=== PATIENT | female | born 1990 | race Caucasian/White ===

== ENCOUNTER → 2020-04-27 10:34 | Outpatient (CLI) | payer OTHER, MEDICAID, SELFPAY ==
--- NOTE | 2020-04-27 11:29 | DI.CT.S_ITS ---
PROCEDURE: CT ABDOMEN PELVIS W CON INDICATIONS: Right lower quadrant pain TECHNIQUE: After the administration of oral and intravenous contrast, 5 mm thick sections acquired from the diaphragms to the symphysis. 5 mm thick coronal and sagittal reformats were performed. For radiation dose reduction, the following was used: automated exposure control, adjustment of mA and/or kV according to patient size. COMPARISON: None. FINDINGS: Image quality: Excellent. ABDOMEN: Lung bases: Lung bases are clear. Heart size is normal. Solid organs: Liver is normal in size and enhancement. Mild hepatic steatosis is seen. No discrete hepatic lesion. Gallbladder is within normal limits. Biliary system is non-dilated. Pancreas enhances normally. Spleen is normal in size and enhancement. No adrenal nodules. Kidneys are normal in size and enhancement, without hydronephrosis. Peritoneum and bowel: Stomach, small bowel, and colon loops are normal in caliber and wall thickness. No free fluid or air. Appendix is visualized and is within normal limits. Nodes and vessels: No retroperitoneal or mesenteric adenopathy. Aorta and inferior vena cava are normal in caliber. Miscellaneous: No ventral hernias. PELVIS: Genitourinary: Bladder wall thickness is normal. Intrauterine device is seen. 3.8 x 3 cm cyst is seen in right adnexa and likely represent a large right ovarian cyst. Small left ovarian cyst measures 9 mm in size is also seen. Miscellaneous: No inguinal hernias or adenopathy. Bones: No suspicious bony lesions. No vertebral body compression fractures. IMPRESSION: 1. Normal appendix. No bowel obstruction or abnormal bowel wall thickening. No free fluid or free air. 2. IUD in place. Normal appearing left ovary with subcentimeter follicle. Suggestion of a 3.8 x 3 cm right ovarian cyst. Pelvic ultrasound can be done for further evaluation if indicated. 3. Mild hepatic steatosis. Dictated by: Jaspal Pena M.D. on 04/27/2020 at 12:39 Approved by: Jaspal Pena M.D. on 04/27/2020 at 12:49
== END ==
PROVIDERS: Referring Provider Physician Assistant; Visit Provider Physician Assistant
DX: R10.31 Right lower quadrant pain (principal); K76.0 Fatty (change of) liver, not elsewhere classified; Z97.5 Presence of (intrauterine) contraceptive device
CPT/HCPCS: 74177; Q9967

== ENCOUNTER → 2020-05-19 12:01 | Outpatient (CLI) | payer OTHER, MEDICAID, SELFPAY ==
--- NOTE | 2020-05-19 12:02 | DI.US.S_ITS ---
PROCEDURE: US PELVIC COMPLETE INDICATIONS: Right pelvic pain TECHNIQUE: Real-time scanning was performed of the pelvic organs, with image documentation. Additional endovaginal scanning was necessary due to incomplete visualization of the adnexal and endometrial structures by transabdominal scanning. COMPARISON: [facility], CT, CT ABDOMEN PELVIS W CON, 04/27/2020, 11:39. FINDINGS: Uterus: Uterus is normal in size at 8.0 x 3.2 x 4.7 cm. Intrauterine device is present in expected position and the endometrial complex is not well seen. Ovaries: Right ovary measures 2.9 x 2.0 x 2.0 cm and the left 2.1 x 3.3 x 2.0 cm. Previously visualized right ovarian cyst is no longer evident. Simple dominant cyst seen on the left ovary measuring up to 3.1 cm. Other: No pathologic free abdominal or pelvic fluid. IMPRESSION: Previously visualized right ovarian cyst has resolved and there is a new left ovarian cyst measuring up to 3.1 cm. Dictated by: Roger Lucas [facility] Interpreted: Darek Osuna MD on 05/19/2020 at 17:18 Approved by: Darek Osuna M.D. on 05/19/2020 at 17:31
== END ==
PROVIDERS: PCP Physician Assistant; Referring Provider Physician Assistant; Visit Provider Physician Assistant
DX: R10.2 Pelvic and perineal pain (principal); N83.292 Other ovarian cyst, left side; Z97.5 Presence of (intrauterine) contraceptive device
CPT/HCPCS: 76856

== ENCOUNTER → 2020-12-11 11:32 | Outpatient (CLI) | payer OTHER, MEDICAID, SELFPAY ==
[2020-12-11 20:11] LABS: Urine N gonorrhoeae NOT DETECTED
[2020-12-11 20:14] LABS: Urine Chlamydia NOT DETECTED
[2020-12-13 11:08] LABS: HSV 2 IGG AB < 0.91 index (0.00-0.90); HSV1IGG < 0.91 index (0.00-0.90)
== END ==
PROVIDERS: PCP Physician Assistant; Visit Provider Physician Assistant Medical
DX: Z20.2 Contact with and (suspected) exposure to infections with a predominantly sexual mode of transmission (principal)
CPT/HCPCS: 86695; 86696; 87491; 87591

== ENCOUNTER → 2021-05-13 14:19 | Outpatient (CLI) | payer OTHER, MEDICAID, SELFPAY ==
[2021-05-15 05:29] LABS: Candida species Negative (Negative); Gardnerella vaginalis Positive (Negative); Trichomoas vaginalis Negative (Negative)
== END ==
PROVIDERS: PCP Physician Assistant; Visit Provider Physician Assistant
DX: N89.8 Other specified noninflammatory disorders of vagina (principal); Z11.3 Encounter for screening for infections with a predominantly sexual mode of transmission
CPT/HCPCS: 87480; 87510; 87660

== ENCOUNTER → 2021-06-24 11:26 | Outpatient (CLI) | payer OTHER, MEDICAID, SELFPAY ==
[2021-06-24 18:59] LABS: Alanine Aminotransferase 63 IU/L (<35); Albumin 4.6 g/dL (3.5-5.0); Albumin Globulin Ratio 1.5 (1.0-2.8); Alkaline Phosphatase 87 U/L (38-126); Aspartate Aminotransferase 41 IU/L (14-36); BUN Creatinine Ratio 21.7 (6-22); Bilirubin Total 0.6 mg/dL (0.2-1.3); Blood Urea Nitrogen 18 mg/dL (7-17); Calcium 9.4 mg/dL (8.4-10.2); Carbon Dioxide 29 mmol/L (22-32); Chloride 102 mmol/L (98-107); Estimated Glomerular Filt Rate > 60 mL/min (>60); Globulin 3.1 g/dL (1.7-4.1); Glucose 88 mg/dL (70-100); HEMOLYSIS < 15 (0-50); Potassium 3.9 mmol/L (3.4-5.1); Sodium 140 mmol/L (137-145); Total Protein 7.7 g/dL (6.3-8.2)
[2021-06-24 19:27] LABS: Hemoglobin A1C% w Est Avg Glu 5.2 % (4.0-6.0)
[2021-06-24 19:40] LABS: HIV 1 & 2 Ab/Ag 4th Gen Combo NEGATIVE (NEGATIVE)
[2021-06-24 20:10] LABS: Urine N gonorrhoeae NOT DETECTED
[2021-06-24 20:26] LABS: Urine Chlamydia NOT DETECTED
[2021-06-26 03:12] LABS: Candida species Positive (Negative); Gardnerella vaginalis Negative (Negative); Trichomoas vaginalis Negative (Negative)
[2021-06-26 06:54] LABS: RPR Screen Non Reactive (Non Reactive)
== END ==
PROVIDERS: PCP Physician Assistant; Visit Provider Physician Assistant
DX: B37.9 Candidiasis, unspecified (principal); R03.0 Elevated blood-pressure reading, without diagnosis of hypertension; B37.2 Candidiasis of skin and nail; Z11.3 Encounter for screening for infections with a predominantly sexual mode of transmission; Z20.2 Contact with and (suspected) exposure to infections with a predominantly sexual mode of transmission; N89.8 Other specified noninflammatory disorders of vagina
CPT/HCPCS: 80053; 83036; 86592; 87389; 87480; 87491; 87510; 87591; 87660

== ENCOUNTER → 2021-09-09 12:03 | Outpatient (CLI) | payer OTHER, MEDICAID, SELFPAY ==
--- NOTE | 2021-09-09 12:04 | DI.RAD.S_ITS ---
PROCEDURE: XR FOOT RT MIN 3V INDICATIONS: distal 1st metatarsal pain, blunt trauma TECHNIQUE: <3> views of the foot were acquired. COMPARISON: None. FINDINGS: Bones: No fractures or dislocations. No suspicious bony lesions. Soft tissues: No tibiotalar joint effusion. Achilles tendon appears normal. IMPRESSION: No acute radiographic abnormality Dictated by: Nazario Palma M.D. on 09/09/2021 at 12:33 Approved by: Nazario Palma M.D. on 09/09/2021 at 12:35
--- NOTE | 2021-09-09 12:04 | DI.RAD.S_ITS ---
PROCEDURE: XR FOREARM LT 2V INDICATIONS: blunt trauma TECHNIQUE: 2 views of the forearm were acquired. COMPARISON: None. FINDINGS: Bones: No fractures or dislocations. No suspicious bony lesions. Soft tissues: No suspicious soft tissue calcifications or masses. IMPRESSION: No acute radiographic abnormality Dictated by: Nazario Palma M.D. on 09/09/2021 at 12:35 Approved by: Nazario Palma M.D. on 09/09/2021 at 12:37
== END ==
PROVIDERS: PCP Physician Assistant; Referring Provider Student in an Organized Health Care Education/Training Program; Visit Provider Student in an Organized Health Care Education/Training Program
DX: M79.671 Pain in right foot (principal); M79.632 Pain in left forearm
CPT/HCPCS: 73090; 73630

== ENCOUNTER → 2022-05-16 13:05 | Outpatient (CLI) | payer OTHER, MEDICAID, SELFPAY ==
[2022-05-16 20:59] LABS: Alanine Aminotransferase 32 IU/L (<35); Albumin 4.4 g/dL (3.5-5.0); Albumin Globulin Ratio 1.5 (1.0-2.8); Alkaline Phosphatase 89 U/L (38-126); Aspartate Aminotransferase 27 IU/L (14-36); BUN Creatinine Ratio 18.1 (6-22); Bilirubin Total 0.4 mg/dL (0.2-1.3); Blood Urea Nitrogen 13 mg/dL (7-17); Calcium 9.4 mg/dL (8.4-10.2); Carbon Dioxide 29 mmol/L (22-32); Chloride 101 mmol/L (98-107); Estimated Glomerular Filt Rate > 60 mL/min (>60); Glucose 95 mg/dL (70-100); HEMOLYSIS < 15 (0-50); Potassium 3.8 mmol/L (3.4-5.1); Sodium 139 mmol/L (137-145); Total Protein 7.4 g/dL (6.3-8.2)
== END ==
PROVIDERS: PCP Physician Assistant; Visit Provider Physician Assistant
DX: R74.8 Abnormal levels of other serum enzymes (principal)
CPT/HCPCS: 80053

== ENCOUNTER → 2022-07-26 14:40 | Outpatient (CLI) | payer OTHER, MEDICAID, SELFPAY | PROVIDERS: PCP Physician Assistant; Visit Provider Nurse Practitioner Adult Health | DX: Z11.3 Encounter for screening for infections with a predominantly sexual mode of transmission (principal) | CPT/HCPCS: 81025; 87491; 87591; 87661 ==

== ENCOUNTER → 2024-07-02 13:33 | Outpatient (CLI) | payer OTHER, MEDICAID, SELFPAY ==
[2024-07-02 18:57] LABS: Add Manual Diff / Slide Review NO; Basophils Absolute Auto 0 /uL (0-100); Basophils Percent Auto 0.5 % (0-2); Eosinophils Absolute Auto 100 /uL (0-450); Eosinophils Percent Auto 1.7 % (2-4); Hematocrit 42.9 % (36-46); Hemoglobin 15.1 g/dL (12.0-16.0); Lymphocytes Absolute Auto 2600 /uL (1100-4500); Lymphocytes Percent Auto 33.6 % (25-40); Mean Corpuscular HGB Conc 35.3 % (30-36); Mean Corpuscular Hemoglobin 30.8 PG (26-34); Mean Corpuscular Volume 87.1 fL (80-100); Monocytes Absolute Auto 700 /uL (0-900); Neutrophils Absolute Auto 4300 /uL (1500-7000); Neutrophils Percent Auto 55.2 % (50-75); Platelet Count 291 X10^3/uL (150-400); Red Blood Cell Count 4.92 X10^6/uL (4.0-5.2); Red Cell Distribution Width 13.4 % (11.6-14.8); White Blood Cell Count 7.8 X10^3/uL (4.5-11.0)
[2024-07-02 19:16] LABS: Alanine Aminotransferase 30 IU/L (<35); Albumin 4.5 g/dL (3.5-5.0); Albumin Globulin Ratio 1.9 (1.0-2.8); Alkaline Phosphatase 78 U/L (38-126); Aspartate Aminotransferase 27 IU/L (14-36); Bilirubin Total 0.4 mg/dL (0.2-1.3); Blood Urea Nitrogen 17 mg/dL (7-17); Calcium 9.1 mg/dL (8.4-10.2); Carbon Dioxide 26 mmol/L (22-32); Chloride 102 mmol/L (98-107); Estimated Glomerular Filt Rate > 60 mL/min (>60); Globulin 2.4 g/dL (1.7-4.1); Glucose 121 mg/dL (70-99); HEMOLYSIS 20 (0-50); Potassium 4.3 mmol/L (3.4-5.1); Sodium 139 mmol/L (137-145); Total Protein 6.9 g/dL (6.3-8.2)
[2024-07-02 19:23] LABS: Erythrocyte Sedimentation Rate 7 MM/HR (0-20)
[2024-07-02 19:48] LABS: TSH w/ Reflex to FT4 1.02 uIU/mL (0.47-4.68)
[2024-07-02 20:06] LABS: Hep C Virus Ab w/Reflex Quant NEGATIVE s/c (NEGATIVE)
== END ==
PROVIDERS: PCP Physician Assistant; Visit Provider Physician Assistant
DX: R51.9 Headache, unspecified (principal); Z79.899 Other long term (current) drug therapy; Z11.59 Encounter for screening for other viral diseases; R74.8 Abnormal levels of other serum enzymes
CPT/HCPCS: 80053; 84443; 85025; 85651; 86803

== ENCOUNTER → 2024-07-24 11:25 | Outpatient (CLI) | payer OTHER, SELFPAY ==
--- NOTE | 2024-07-24 11:28 | DI.MRI.S_ITS ---
PROCEDURE: MR HEAD/BRAIN WO/W CON INDICATIONS: New headaches. Pt concern for meningioma/depoprovera use TECHNIQUE: Noncontrast axial T1 spin echo, axial T2 fast spin echo, sagittal and axial FLAIR, coronal T2 fast spin echo, axial gradient echo, axial diffusion and ADC through the brain. After the administration of contrast, axial and coronal and sagittal 3D VIBE or T1 spin echo with fat saturation through the brain. COMPARISON: None. FINDINGS: Image quality: Excellent. CSF Spaces: Basal cisterns are patent. No extra-axial fluid collections. Ventricles are normal in size and shape. Brain: No midline shift. No intracranial bleeds or masses. No abnormal intracranial enhancement. The brainstem appears normal. Diffusion-weighted images demonstrate no acute infarct. No chronic ischemic insults. Normal intravascular flow voids are present. Skull and face: Calvarial marrow is normal in signal. Orbits appear normal. Sinuses: Sinuses and mastoids appear clear. IMPRESSION: No acute intracranial abnormalities or abnormal intracranial enhancement. Normal appearance of the brain. Dictated by: Derrell Osorio M.D. on 07/24/2024 at 12:42 Approved by: Derrell Osorio M.D. on 07/24/2024 at 12:44
== END ==
PROVIDERS: PCP Physician Assistant; Referring Provider Physician Assistant; Visit Provider Physician Assistant
DX: G44.219 Episodic tension-type headache, not intractable (principal)
CPT/HCPCS: 70553; A9579